=== PATIENT | female | born 1980 | race Caucasian/White ===

== ENCOUNTER 2025-01-22 10:22 | Emergency (ER) | payer OTHER, SELFPAY ==
[2025-01-22 10:32] VITALS: BP 142/90; PULSE 89; RESP 16; TEMP 36.1; O2SAT 99
--- NOTE | 2025-01-22 10:33 | ED.SKABFB ---
HPI - Skin/Abscess/Foreign Bdy General Chief complaint: Skin/Abscess/Foreign Body Stated complaint: Celsius Time Seen by Provider: 01/22/25 10:40 Source: patient, RN notes reviewed and old records reviewed Mode of arrival: ambulatory Limitations: no limitations History of Present Illness HPI narrative: 44-year-old female presents to the [facility] with concerns for cellulitis to the left lower leg. Reports history of recurrent cellulitis to the same area about 10 years ago Symptoms 10-12 days. Patient reports that in the afternoon has had some increased discomfort, tenderness to area, increased redness. has been applying colloidal silver. Onset (ago): day(s) (-) Related Data Home Medications ?Medication ?Instructions ?Recorded ?Confirmed ?Last Taken ?Type tirzepatide (weight loss) 10 10 mg subcut WEEKLY 01/22/25 Unknown History mg/0.5 mL subcutaneous pen injector (Zepbound) Allergies Allergy/AdvReac Type Severity Reaction Status Date / Time No Known Allergies Allergy Verified 01/22/25 10:31 Review of Systems Review of Systems: All systems reviewed & are unremarkable except as noted in HPI and below Constitutional: Constitutional: Reports no additional constitutional complaints ENT: Reports system reviewed and no additional complaints, except as documented Cardiovascular: Cardiovascular: Reports no additional cardiovascular complaints, Denies chest pain and Denies dyspnea Respiratory: Respiratory: Reports no additional respiratory complaints, Denies chest congestion, Denies cough and Denies dyspnea Musculoskeletal: Musculoskeletal: Reports no additional musculoskeletal complaints Integumentary/Breasts: Skin/Breast: Reports as per HPI, Reports change in pigmentation and Reports skin pain PMFSH Comments At the time of my signature, I reviewed and agree with the nursing past medical, surgical, social, and family history. There is no relevant family history pertinent to the patient complaint. Exam Const: General: cooperative, healthy appearing, comfortable, no acute distress, well developed, alert and well nourished Nutritional Appearance: well nourished and obese morbidly obese Orientation/consciousness: patient oriented x3 Limitations: no limitations HENMT: Head: normal to inspection Ears: hearing grossly normal bilaterally, external ears normal, TM's normal bilaterally, EAC's normal, mastoids normal and no periauricular adenopathy Face/Nose/Sinus: Normal external nose present, Normal nares present and No nasal discharge present Face and sinus: normal facial exam Mouth: Yes Normal oral and palatal mucosa present, Yes lip normal, Yes tongue normal and Yes moist mucous membranes Eyes: General: appearance normal, both eyes and all related structures Alignment and Position: alignment normal Neck: Neck: normal visual inspection, full ROM, no lymphadenopathy and no meningeal signs Chest: Chest palpation & inspection: normal inspection of the chest Resp: Effort & Inspection: normal respiratory effort and able to speak in complete sentences Auscultation: clear to auscultation bilaterally, no crackles, no rales, no rhonchi and no wheezes Cardio: Rate: regular rate Skin: General skin exam: normal color and no rashes or lesions noted Wounds: no wounds Full body images:  1. Area of discoloration, pink, not red, no increased warmth, no swelling. No fluctuance. Patient reports tender to palpation. No induration. Neuro: General: patient oriented x3, gait normal, moves all extremities and no meningeal signs Cognition (Neuro): normal cognition Speech: normal speech Gait exam (Neuro): Normal gait present Extrem: General: normal to inspection, full ROM, capillary refill normal and normal gait Psych: Appearance: grossly normal and well kempt Mental Status: mental status grossly normal Speech and movement: Normal speech and movement present and Clear speech present Affect: normal affect Attitude: cooperative Course Course Level of Care: Express Care Visit Vital Signs Vital signs: Vital Signs Temperature 96.9 F L 01/22/25 10:32 Pulse Rate 89 01/22/25 10:32 Respiratory Rate 16 01/22/25 10:32 Blood Pressure 142/90 H 01/22/25 10:32 Pulse Oximetry 99 01/22/25 10:32 Oxygen Delivery Room Air 01/22/25 10:32 Temperature 96.9 F L 01/22/25 10:32 Pulse Rate 89 01/22/25 10:32 Respiratory Rate 16 01/22/25 10:32 Blood Pressure 142/90 H 01/22/25 10:32 Pulse Oximetry 99 01/22/25 10:32 Oxygen Delivery Room Air 01/22/25 10:32 Reviewed MDM - Skin/Abscess/Foreign Bdy MDM Narrative Medical decision making narrative: Patient sitting in exam room. Patient is nontoxic, vitals are stable. Patient presents with 10 day history discoloration to the left lower leg. Patient reports a distant history of cellulitis where she was admitted for sepsis. Will cover with an antibiotic, discussed [id number] treatments. Stressed the importance of following up with primary care provider and signs and symptoms to proceed to the emergency room Discharge instructions reviewed with patient, as well as provided in writing per nursing staff. The instructions also include specific and strict return/GO TO THE ER as well as f/u information. All questions have been answered, and the patient deny any further questions with discharge and discharge plan. Some parts of this dictation were generated by voice recognition software and may contain typographical and/or grammatical inaccuracies. Differential Diagnosis Differential diagnosis: Likely abscess of skin or subcutaneous tissue, viral exanthem, urticaria, cellulitis, eczema and contact dermatitis Critical Care Time Critical Care Time Critical Care Time: No Discharge Plan Discharge Clinical Impression: Discoloration of skin, History of cellulitis Patient Disposition: Home Condition: Stable Instructions: Antibiotic Form, Cellulitis (ED) Additional Instructions: Rest, ice and elevate every 2-3 hours for 15-20 minutes while awake. Take Tylenol alternating with ibuprofen as needed pain Take antibiotic as prescribed It is recommended you follow-up with your primary care provider as follow-up for an urgent care visit. Also to have your blood pressure checked. Today your blood pressure was 142/90. If your symptoms get any worse such as but not limited to fever, severe pain please proceed to the nearest emergency room Patient Language: Upper Sorbian Prescriptions: New cephalexin 500 mg capsule 500 mg PO Q8H 7 Days Qty: 21 0RF No Action Zepbound 10 mg/0.5 mL pen injector 10 mg subcut WEEKLY Follow-up/Referrals: BINGHAMTON, [Primary Care Provider] - 2 Weeks ([facility] care follow up ) Time of Disposition: 11:07
== END 2025-01-22 11:09 | disposition home or self-care (01) ==
PROVIDERS: Emergency Provider Nurse Practitioner
DX: R23.8 Other skin changes (principal); Z87.2 Personal history of diseases of the skin and subcutaneous tissue
CPT/HCPCS: 99213; G0463